=== PATIENT | male | born 1955 | race Caucasian/White ===

== ENCOUNTER → 2019-09-30 | Outpatient (CLI) | payer OTHER ==
--- NOTE | 2019-10-04 10:04 | SLE ---
[facility] [address] [address] [place] [address] POLYSOMNOGRAPHY STUDY Name: MEGAN MOREL Room #: [id number] Admission: 09/30/19 Attend Phys: Deon Mcarthur MD Discharge: Date of : 53 Report #: [id number] THIS REPORT FOR: //name// CC: Deon Mcarthur MD DATE OF SERVICE: 09/30/2019 SLEEP STUDY REFERRING PHYSICIAN: Dr. Deon Mcarthur. INTERPRETATION: The patient is a 64 years old who weighs 271 pounds with a BMI of 35.8. The patient's Bremond score was 11. The patient underwent split night study performed at [place]. During the night study, the patient spent 395 minutes in bed and slept for 242 minutes with a sleep efficiency of 61%, which was low. Sleep latency was 10.8 minutes with a REM latency of 134 minutes. Sleep architecture showed increased stage 1 and stage 2 sleep, absent N3 sleep and reduced REM sleep. During the initial diagnostic portion of the study, the patient slept for 145 minutes. During that time, the patient had 18 obstructive apneas, 1 mixed apnea and no central apneas. There were 62 hypopneas. The patient's AHI was 33.5 per hour with a REM AHI of 80 per hour and a supine AHI of 47.8 per hour. EKG monitoring revealed an average heart rate of 60 beats per minute. No sustained arrhythmias observed. PLMS were seen at an index of 29 per hour and 5 per hour caused EEG arousals. PLM index reduced to only 3.7 per hour while the patient slept on CPAP Nocturnal oximetry study revealed an average oxygen saturation of 93% with a lowest of 82%. Seventy minutes were spent in oxygen saturation less than 89%. The patient met the criteria for CPAP initiation. It was started at 10 cm water and titrated up to 15 cm water. At the final pressure, the patient slept for 38 minutes. The patient did not have REM sleep. The patient did have supine sleep. The patient's AHI was reduced to 3.3 per hour and oxygen saturation remained above 92%. At a lower pressure, the patient did have REM sleep and the patient's AHI was 5 per hour. IMPRESSION: 1. Severe sleep apnea-hypopnea syndrome. Total AHI of 33 per hour with a REM [facility] [address] [place] [address] POLYSOMNOGRAPHY STUDY Name: MEGAN MOREL Room #: REG DEBBIE Smith#: [id number] Admission: 09/30/19 Attend Phys: Deon Mcarthur MD Discharge: Date of : 53 Report #: [id number] AHI of 80 per hour. 2. Nocturnal hypoxia secondary to obstructive sleep apnea, but resolved with CPAP. 3. Moderate periodic limb movements, which did subsequently resolve when the patient slept on CPAP and as such does not need to be treated. RECOMMENDATIONS: 1. CPAP at 15 cm water completely eliminated the patient's sleep apnea and should be used on a nightly basis. 2. Follow up in 4-6 weeks to assess compliance with CPAP and to document clinical improvement. 3. Weight loss is strongly advised. 4. Avoid central nervous system depressants. 5. Cautioned regarding driving until symptoms of sleep apnea resolve with the use of CPAP. <ELECTRONICALLY SIGNED> By: Dariel Askew MD 10/04/19 1004 [id number] [id number] Dariel Askew MD /nt
== END ==
LOC: SLEEPLAB 21:48
DX: G47.30 Sleep apnea, unspecified (principal); G47.33 Obstructive sleep apnea (adult) (pediatric); R09.02 Hypoxemia

== ENCOUNTER → 2020-01-14 | Outpatient (CLI) | payer OTHER | LOC: RAD 09:33 | PROVIDERS: ATTEND Pediatrics | DX: J98.4 Other disorders of lung (principal); J45.909 Unspecified asthma, uncomplicated ==

== ENCOUNTER → 2020-05-08 | Outpatient (CLI) | payer OTHER ==
[~2020-05-08] VITALS: Ht 182.9 cm; Wt 125.2 kg
[~2020-05-08] MED LIST: ADVIL200 M1 PO; AIRBORNE TABLE1 EACH PO; APPLE CIDER VI1 EAC1 PO; COQ1050 MG PO; CYCLOBENZAPRINE5 MG PO; FISH OIL 1,0001 EAC9 PO; LUTEIN 15 MG S1 EACH PO; MAGNESIUM250 M1 PO; MOVE FREE ULTR1 EAC1 PO; MUCINEX600 MG PO; RED YEAST RICE600 M1 PO; SIMVASTATIN40 MG PO; STOOL SOFTENER1 EAC2 PO; SUPER THERAVIT1 EACH PO; TUMERSAID TABL1 EACH PO; VITAMIN C500 M1 PO; ZYRTEC10 MG PO
--- NOTE | ~2020-05-08 | HPC ---
[facility] [place] [address] PAIN MANAGEMENT CONSULTATION Name: MEGAN MOREL [facility]: [facility] [id number] Admission: 05/08/20 Attend Phys: Sudheer Thompson MD Discharge: Date of : 53 Report #: [id number] CC: Deon Thompson DATE OF SERVICE: 05/08/2020 CHIEF COMPLAINT: Low back pain radiating to the knees through the buttocks bilaterally. The patient is a pleasant 65-year-old I am seeing today at the request of Dr. Mcarthur for what sounds like lumbar radiculopathy. It began in September after he did some moving out of his condominium at the [place] [facility] the [facility]. He started noticing pain radiating into his buttocks and down the back of his legs. It worsened to a level of 10/10. He saw a chiropractor without relief. He did some physical therapy as well as ordered by Dr. Mcarthur without improvement. It is a constant, stabbing sensation. It is worse when he is carrying additional weight, walking up an incline. Pain is so bad that he is going to bed every day and just lying down for 2-3 hours because of the fatigue. He has had no MRIs. MEDICATIONS: Ibuprofen, Move Free, Centrum, vitamin C, magnesium, Lutein, fish oil, CoQ10, red yeast rice, vinegar, Mucinex, stool softener, turmeric, simvastatin. Dr. Mcarthur has provided cyclobenzaprine, which has not helped much, 5 mg. ALLERGIES: None. PAST MEDICAL HISTORY: Asthma. He had cancer of the prostate. SOCIAL HISTORY: He says he has nearly retired. He stopped working during September due to COVID. He is a real estate representative. Denies use of tobacco, enjoys alcohol 1 or 2 beverages a day. Impact pain score is 35, a fairly reasonable score. He scores highest for normal work, walking ability and enjoyment of life, which make up 29/35 points. Gets along well with others. Sleeps well. His mood is okay. Opioid risk score is 0, suggesting a low likelihood of addiction if we use some opioids in the treatment of his pain. PHYSICAL EXAMINATION: GENERAL: He is 6 feet tall, BMI is 37.4. VITAL SIGNS: Blood pressure 154/90, heart rate 78, respirations 16, O2 sat 96, pain intensity 10. Moves independently from sitting to standing position. His gait is antalgic. CHEST: Clear. CARDIAC: Rhythm was regular without murmur. ABDOMEN: He has a panniculus and an obese abdomen. MUSCULOSKELETAL: Examination of the spine reveals tenderness across the lumbosacral spine. He has pain with back extension. Minimal pain with forward flexion. Rotational movements do not increase pain. Sensation is intact. There is a positive deep pain radiating down his buttock and into his leg that mimics his normal pain with straight leg raising. This has been both supine and sitting position. Examination of the hips is normal with no pain with internal and external rotation. Deep tendon reflexes are absent in knees and ankle. X-RAYS: None. RECOMMENDATIONS: MRI is ordered. After we have the MRI, I plan to inject him likely at L4-L5 based upon his current symptoms, suggesting an L4 through S1 radiculopathy. I explained the procedure to him in some detail, potential risks and benefits. Determination of the exact location of injection may be modified by his MRI report. Followup visit is planned as soon as possible. By: [id number] Sudheer Thompson MD /nt
[2020-05-08 12:55] VITALS: BP 154/90
--- NOTE | 2020-05-08 12:56 | NUR ---
Pain Clinic Assessment: 1. History of Osteoarthritis: Not Applicable History of Rheumatoid Arthritis: Not Applicable 2. Height: 6 ft. 0 in. 182.9 cm. Weight: 276.0 lb. oz. 125.193 kg. Patient's BMI: 37.4 3. Vital Signs: BP: 154/90 Pulse: 78 Resp: 16 Temp: 02 Sat: 96 ECG Mon: 4. Pain Intensity: 10 5. Fall Risk: Dizziness: Needs help standing or walking: Fallen in the last 3 months: Fall risk comments: 6. Patient on Blood Thinner: None 7. History of Hypertension: N 8. Opioid Therapy greater than 6 weeks: N Opiate Contract Signed: 9. Risk Assessment Tool Provided: LOW-0 10. Functional Assessment Tool: 35/70 11. Recreational Drug Use: Never Drug Type: Tobacco Use: Former Smoker Tobacco Type: Amount or Packs/day: How Many Years: Alcohol Use: Yes Frequency: Weekly Quant: 1
== END ==
LOC: PAIN 07:09
PROVIDERS: ATTEND Anesthesiology Pain Medicine
DX: M54.5 Low back pain (principal); Z79.891 Long term (current) use of opiate analgesic

== ENCOUNTER → 2020-05-17 | Outpatient (CLI) | payer OTHER | LOC: MRI 05-15 09:37 | PROVIDERS: ATTEND Anesthesiology Pain Medicine | DX: M48.061 Spinal stenosis, lumbar region without neurogenic claudication (principal); M51.36 Other intervertebral disc degeneration, lumbar region; M47.816 Spondylosis without myelopathy or radiculopathy, lumbar region; M25.78 Osteophyte, vertebrae ==

== ENCOUNTER → 2020-05-18 | Outpatient (CLI) | payer OTHER ==
[~2020-05-18] VITALS: Ht 182.9 cm; Wt 124.7 kg
[2020-05-18 11:10] VITALS: BP 137/99
--- NOTE | 2020-05-18 11:22 | NUR ---
Pain Clinic Assessment: 1. History of Osteoarthritis: Not Applicable History of Rheumatoid Arthritis: Not Applicable 2. Height: 6 ft. 0 in. 182.9 cm. Weight: 275.0 lb. oz. 124.740 kg. Patient's BMI: 37.3 3. Vital Signs: BP: 137/99 Pulse: 73 Resp: 18 Temp: 02 Sat: 97 ECG Mon: 4. Pain Intensity: 5 5. Fall Risk: Dizziness: N Needs help standing or walking: N Fallen in the last 3 months: N Fall risk comments: 6. Patient on Blood Thinner: None 7. History of Hypertension: N 8. Opioid Therapy greater than 6 weeks: N Opiate Contract Signed: 9. Risk Assessment Tool Provided: LOW-0 10. Functional Assessment Tool: 35/70 11. Recreational Drug Use: Never Drug Type: Tobacco Use: Former Smoker Tobacco Type: Amount or Packs/day: How Many Years: Alcohol Use: Yes Frequency: Quant:
== END | disposition home or self-care (01) ==
LOC: PAIN 06:53
PROVIDERS: ATTEND Anesthesiology Pain Medicine
DX: M47.26 Other spondylosis with radiculopathy, lumbar region (principal); M54.5 Low back pain; Z98.890 Other specified postprocedural states; Z79.899 Other long term (current) drug therapy; Z87.891 Personal history of nicotine dependence

== ENCOUNTER → 2020-08-17 | Outpatient (CLI) | payer OTHER ==
[~2020-08-17] VITALS: Ht 185.4 cm; Wt 126.6 kg
[2020-08-17 08:58] VITALS: BP 127/80
--- NOTE | 2020-08-17 09:10 | NUR ---
Pain Clinic Assessment: 1. History of Osteoarthritis: LOW BACK History of Rheumatoid Arthritis: Not Applicable 2. Height: 6 ft. 1 in. 185.4 cm. Weight: 279.2 lb. oz. 126.645 kg. Patient's BMI: 36.8 3. Vital Signs: BP: 127/80 Pulse: 71 Resp: 18 Temp: 02 Sat: 98 ECG Mon: 4. Pain Intensity: 5 5. Fall Risk: Dizziness: N Needs help standing or walking: N Fallen in the last 3 months: N Fall risk comments: 6. Patient on Blood Thinner: None 7. History of Hypertension: N 8. Opioid Therapy greater than 6 weeks: N Opiate Contract Signed: 9. Risk Assessment Tool Provided: LOW-0 10. Functional Assessment Tool: 35/ 11. Recreational Drug Use: Never Drug Type: Tobacco Use: Former Smoker Tobacco Type: Amount or Packs/day: How Many Years: Alcohol Use: No Frequency: Quant:
== END | disposition home or self-care (01) ==
LOC: PAIN 06:56
PROVIDERS: ATTEND Anesthesiology Pain Medicine
DX: M47.26 Other spondylosis with radiculopathy, lumbar region (principal); G89.29 Other chronic pain; Z98.890 Other specified postprocedural states; Z79.899 Other long term (current) drug therapy; Z87.891 Personal history of nicotine dependence

== ENCOUNTER → 2021-02-13 | Outpatient (CLI) | payer OTHER | LOC: SJCVC 14:38 | PROVIDERS: ATTEND Internal Medicine | DX: R94.31 Abnormal electrocardiogram [ECG] [EKG] (principal); I45.10 Unspecified right bundle-branch block; R06.00 Dyspnea, unspecified; G47.33 Obstructive sleep apnea (adult) (pediatric); E78.5 Hyperlipidemia, unspecified; I77.810 Thoracic aortic ectasia; Q23.1 Congenital insufficiency of aortic valve; E78.00 Pure hypercholesterolemia, unspecified; J45.909 Unspecified asthma, uncomplicated; I77.819 Aortic ectasia, unspecified site; Z82.49 Family history of ischemic heart disease and other diseases of the circulatory system; Z79.899 Other long term (current) drug therapy; Z87.891 Personal history of nicotine dependence; Z72.89 Other problems related to lifestyle ==

== ENCOUNTER → 2021-02-16 | Outpatient (CLI) | payer OTHER | LOC: SJCVCIMAG 11:12 | PROVIDERS: ATTEND Internal Medicine | DX: I08.2 Rheumatic disorders of both aortic and tricuspid valves (principal); E78.5 Hyperlipidemia, unspecified; G47.33 Obstructive sleep apnea (adult) (pediatric); R06.00 Dyspnea, unspecified; R07.89 Other chest pain ==

== ENCOUNTER → 2021-02-22 | Outpatient (CLI) | payer OTHER | LOC: SJCVCIMAG 07:34 | PROVIDERS: ATTEND Internal Medicine | DX: R07.2 Precordial pain (principal); Q23.1 Congenital insufficiency of aortic valve; E78.00 Pure hypercholesterolemia, unspecified; R06.00 Dyspnea, unspecified; R53.83 Other fatigue; E78.5 Hyperlipidemia, unspecified; Z79.899 Other long term (current) drug therapy; Z87.891 Personal history of nicotine dependence ==

== ENCOUNTER → 2021-03-02 | Outpatient (CLI) | payer OTHER | LOC: SJCVC 13:36 | PROVIDERS: ATTEND Internal Medicine | DX: R94.31 Abnormal electrocardiogram [ECG] [EKG] (principal); I44.4 Left anterior fascicular block; R07.9 Chest pain, unspecified; R06.00 Dyspnea, unspecified; G47.33 Obstructive sleep apnea (adult) (pediatric); E78.5 Hyperlipidemia, unspecified; Q23.1 Congenital insufficiency of aortic valve; I71.2 Thoracic aortic aneurysm, without rupture; J45.909 Unspecified asthma, uncomplicated; Z79.899 Other long term (current) drug therapy; Z87.891 Personal history of nicotine dependence; Z82.49 Family history of ischemic heart disease and other diseases of the circulatory system ==

== ENCOUNTER → 2021-03-09 | Outpatient (CLI) | payer OTHER | LOC: CAT 09:24 | PROVIDERS: ATTEND Internal Medicine | DX: I71.2 Thoracic aortic aneurysm, without rupture (principal); K76.0 Fatty (change of) liver, not elsewhere classified; R91.8 Other nonspecific abnormal finding of lung field; Z85.46 Personal history of malignant neoplasm of prostate ==

== ENCOUNTER → 2021-03-15 | Outpatient (CLI) | payer OTHER ==
[~2021-03-15] VITALS: Ht 182.9 cm; Wt 126.1 kg
[~2021-03-15] MED LIST changes: +TOPROL XL25 MG PO
[2021-03-15 07:15] VITALS: BP 114/78
[2021-03-15 07:49] LABS: ABSOLUTE NEUTROPHILS 2.1 thou/uL (1.4-8.2); BASOPHILS 0.7 % (0.0-2.0); EOSINOPHILS 2.9 % (0.0-3.0); HEMATOCRIT 38.7 % (42.0-52.0); HEMOGLOBIN 12.8 gm/dL (14.0-18.0); LYMPHOCYTES 37.3 % (24.0-44.0); MCHC 32.9 g/dL (28.0-37.0); MCV 100.1 fL (80.0-100.0); PLATELET COUNT 186 thou/uL (150-400); POLYS 47.1 % (36.0-66.0); RBC 3.87 mil/uL (4.50-6.00); RDW 13.2 % (10.5-14.5); WBC 4.4 thou/uL (4.0-11.0)
[2021-03-15 07:59] LABS: CALCIUM 8.9 mg/dL (8.5-10.1); POTASSIUM 4.3 mmol/L (3.5-5.1)
--- NOTE | 2021-03-15 11:39 | TEE ---
[facility] [address] [place] [address] TRANSESOPHAGEAL ECHOCARDIOGRAM Name: MEGAN MOREL Room #: REG [facility]#: [id number] Admission: 03/15/21 Attend Phys: Taj Barnes MD, Discharge: Date of : 53 Report #: [id number] THIS REPORT FOR: cc: Deon Mcarthur MD, Rene P. MD Lundgren, Craig H. MD [facility] ~ APPROVED REPORT Study performed: 03/15/2021 09:52:18 EXAM: Comprehensive 2D, Doppler, and color-flow Echocardiogram Patient Location: Out-Patient Room #: 9 Status: routine BSA: 2.45 HR: 70 bpm BP: 120/73 mmHg Rhythm: NSR Other Information Study Quality: Good Indications Aortic Valve Disease Echo Enhancing Agent Indication: Rule out Shunt Agent(s) / Amount(s) Used: Agitated Saline 7 cc Procedure After obtaining informed consent, patient underwent transesophageal echo in the [employer]. Type of Sedation : Conscious Sedation Sedation was administered by Eleni Giordano RN. Sedation start time: 1000 Case end Time: 2 Sedation was achieved intravenously with: Versed (3mg) Fentanyl (100mcg) Transesophageal probe was inserted and advanced into esophagus without difficulty by Taj Barnes MD. Echo enhancement indication: R/O Septal defect. Echo enhancement agent administered: Agitated Saline The TREVA was performed without complications. Throughout the procedure, the blood pressure, pulse oximetry, cardiac [facility] [address] [place] [address] TRANSESOPHAGEAL ECHOCARDIOGRAM Name: MEGAN MOREL Room #: REG [facility].#: [id number] Admission: 03/15/21 Attend Phys: Taj Barnes, Discharge: Date of : 53 Report #: [id number] rhythm, and rate were monitored. The patient tolerated the procedure without adverse effects. Recovery from conscious sedation was uneventful and vital signs were stable. Left Ventricle The left ventricle is normal size. There is normal LV segmental wall motion. There is normal left ventricular wall thickness. The left ventricular systolic function is normal. The left ventricular ejection fraction is within the normal range. LVEF is 55-60%. Right Ventricle The right ventricle is normal size. The right ventricular systolic function is normal. Atria The left atrium size is normal. No thrombus is visualized in the left atrium or appendage. No shunting by contrast bubble injection The right atrium size is normal. Aortic Valve Aortic valve is calcified, trileaflet. Mild aortic regurgitation. There is no aortic valvular stenosis. Mitral Valve The mitral valve is normal in structure. Trace mitral regurgitation. No evidence of mitral valve stenosis. Tricuspid Valve The tricuspid valve is normal in structure. There is no tricuspid valve regurgitation noted. Pulmonic Valve The pulmonary valve is normal in structure. There is no pulmonic valvular regurgitation. Great Vessels Aortic root is dilated. Ascending aorta is dilated (4.9cm) IVC is normal in size and collapses >50% with inspiration. Pericardium There is no pericardial effusion. <Conclusion> The left ventricular systolic function is normal. [facility] [address] [address] TRANSESOPHAGEAL ECHOCARDIOGRAM Name: MEGAN MOREL Rico Room #: BRITNEY Smith#: [id number] Admission: 03/15/21 Attend Phys: Taj Barnes, Discharge: Date of : 53 Report #: [id number] There is normal LV segmental wall motion. LVEF is 55-60%. No thrombus in the left atrium or left atrial appendage. No shunting by contrast bubble injection Aortic valve is calcified, trileaflet. Mild aortic regurgitation. The mitral valve is normal in structure. Trace mitral regurgitation. Ascending aorta is dilated (4.9cm) There is no pericardial effusion. <ELECTRONICALLY SIGNED> By: Taj Barnes MD, FACC 03/15/21 1139 1139 113 Taj Barnes MD, FACC /INF
--- NOTE | 2021-03-15 16:29 | CATHLAB ---
[facility] [place] [address] INVASIVE PROCEDURE REPORT Name: MEGAN MOREL Room #: REG DEBBIE ThomasonDenise#: [id number] Admission: 03/15/21 Attend Phys: Taj Barnes MD, Discharge: Date of : 53 Report #: [id number] THIS REPORT FOR: cc: Deon Mcarthur MD, Rene P. MD Lundgren, Craig H. MD [facility] ~ APPROVED REPORT Study performed: 03/15/2021 12:00:54 Patient Details Patient Status: Out-Patient Room #: The patient is a 66 year-old male Event Personnel Taj [place] Historian, Skye Chase RTR Scrmaribeth, Jacquelin Garcia RN RN, Zulma Mcgowan RTR, MOVIE OPERATOR Monitor, Meche Reyes RTR Monitor Procedures Performed Art Access - R femoral artery* Left Heart Cath w/or w/o Coronaries [id number] [facility] [id number] Initial Mod Sed Same Phys/QHP Gr5y [id number] Hemostasis w/ Mynx Indication Chest pain Procedure Narrative The Right Groin^ was infiltrated with 1% Lidocaine subcutaneous anesthesia. A PINNACLE 6FR Sheath #[id number] sheath was inserted into the RFA^. Coronary angiography was performed using coronary diagnostic catheters. The right coronary system was accessed and visualized with a JR4 catheter. The left coronary system was accessed and visualized with a JL4 catheter. The left ventricle was accessed and visualized with a PIGTAIL catheter. Left ventricular/Aortic Valve gradient assessed via catheter pullback. Left ventriculogram was performed in 30 degree projection. Closure device was deployed with a Fr MYNX CONTROL 6F/7F L#[id number]. The patient tolerated the procedure well and there were no complications associated with the procedure. There was no hematoma. Intraoperative Conscious Sedation Sedation start time: 12:33 Case end Time: 13:01 [facility] [employer] [place] [place] [address] INVASIVE PROCEDURE REPORT Name: MEGAN MOREL [facility]: [facility] [id number] Admission: 03/15/21 Attend Phys: Taj Barnes, Discharge: Date of : 53 Report #: [id number] Fentanyl 50 mcg Versed 1 mg Fluoro Time: 2.80 minutes Dose: DAP 81743.70 cGycm2 1058 mGy Contrast Type and Amount: Omnipaque 130 ml Coronary Angiography The patient's coronary anatomy is right dominant. Diagnostic Cath Left Main Normal left main LAD Normal left anterior descending Diagonal 1 Several small angiographically normal diagonal branches Circumflex Large nondominant circumflex comprised of a single large trifurcating marginal branch, angiographically normal OM1 Normal trifurcating marginal branch Right Coronary Normal right coronary. R PDA Normal posterior descending RPLV Normal posterior lateral branch Left Ventriculography The left ventricle is normal in size with normal contractility. The left ventricular ejection fraction is estimated to be 60-65%. Left ventricular wall motion abnormalities are not present. There is no mitral insufficiency. Dilated ascending aorta. Hemodynamics The aortic pressure is 103/61 mmHg with a mean of 79 mmHg. The left ventricular pressure is 113/14 mmHg with a mean of mmHg. The left ventricular end diastolic pressure is 26 mmHg. Pullback from the left ventricle to the aorta revealed no gradient across the aortic valve. Conclusion 1. Normal global and regional left ventricular systolic function. EF 65%. 2. Dilated ascending aorta 3. Normal coronary vasculature. Right coronary dominant circulation. <ELECTRONICALLY SIGNED> By: Taj Barnes MD, FACC 03/15/21 1629 [id number] Taj Barnes MD, FACC /INF
== END | disposition home or self-care (01) ==
LOC: CATH 06:30
PROVIDERS: ATTEND Internal Medicine
DX: R07.9 Chest pain, unspecified (principal); I08.0 Rheumatic disorders of both mitral and aortic valves; I77.819 Aortic ectasia, unspecified site; E78.00 Pure hypercholesterolemia, unspecified; E78.5 Hyperlipidemia, unspecified; G47.33 Obstructive sleep apnea (adult) (pediatric); J45.909 Unspecified asthma, uncomplicated; Z98.890 Other specified postprocedural states; Z79.899 Other long term (current) drug therapy; Z87.891 Personal history of nicotine dependence; Z85.46 Personal history of malignant neoplasm of prostate